=== PATIENT | male | born 2005 | race Two or more races ===

== ENCOUNTER 2024-10-13 20:29 | Emergency (ER) | payer MEDICAID, OTHER ==
[~2024-10-13] VITALS: Ht 170.2 cm; Wt 89.8 kg
[2024-10-13 21:00] VITALS: BP 139/77; PULSE 74; RESP 16; TEMP 98.2; O2SAT 99
[2024-10-13] MEDS ORDERED: IBUP-1456 PO (21:41)
--- NOTE | 2024-10-13 21:42 | ED.PDOC ---
Musculoskeletal HPI Comments 18-year-old male presents to ER with complaints of right shoulder pain x1 day. Patient reports that he sustained a 3 ft fall and landed on his right shoulder at 7:30 p.m. prior to arrival to ER onto rocks after jumping a fence and has since been experiencing 6/10 right shoulder pain. Denies head injury/LOC. Denies use of medications for current symptoms. Patient presents to ER ambulatory on arrival, with steady gait, in no distress. Denies neck pain, numbness/tingling, shortness of breath, chest pain or any further symptoms/complaints Chief Complaint: Upper Extremity Time Seen by MD: 20:39 Primary Care Provider: UNKNOWN Reviewed Notes: Nurses Notes, Medications, Allergies Allergies: Coded Allergies: NO KNOWN ALLERGIES (Unverified , 10/13/24) Home Meds Active Scripts Ibuprofen (Ibuprofen) 800 Mg Tab, 1 TAB PO TID PRN, #30 TAB 0 Refills Prov:DEBBIEMARIANGELMARICRUZ 10/13/24 Information Source: Patient Mode of Arrival: Ambulatory Past Medical History PAST MEDICAL HISTORY: Denies Surgical History: Denies all surgeries Family History Family History: Unknown Social History Smoker: Non-Smoker Alcohol: Denies ETOH Use Drugs: Denies Drug Use Lives In: Home Constitutional: denies: chills, diaphoresis, fatigue, fever, malaise, sweats, weakness, others EENTM: denies: blurred vision, double vision, ear bleeding, ear discharge, ear drainage, ear pain, ear ringing, eye pain, eye redness, hearing loss, mouth pain, mouth swelling, nasal discharge, nose bleeding, nose congestion, nose pain, photophobia, tearing, throat pain, throat swelling, voice changes, others Respiratory: denies: cough, hemoptysis, orthopnea, SOB at rest, shortness of breath, SOB with excertion, stridor, wheezing, others Cardiovascular: denies: chest pain, dizzy spells, diaphoresis, Dyspnea on exer tion, edema, irregular heart beat, left arm pain, lightheadedness, palpitations, PND, syncope, others Gastrointestinal: denies: abdomen distended, abdominal pain, blood streaked bowels, constipated, diarrhea, dysphagia, difficulty swallowing, hematemesis, melena, nausea, poor appetite, poor fluid intake, rectal bleeding, rectal pain, vomiting, others Genitourinary: denies: burning, dysuria, flank pain, frequency, hematuria, incontinence, penile discharge, penile sore, pain, testicle pain, testicle swelling, urgency, others Neurological: denies: dizziness, fainting, headache, left sided numbness, left sided weakness, numbness, paresthesia, pre-existing deficit, right sided numbness, right sided weakness, seizure, speech problems, tingling, tremors, weakness, others Musculoskeletal: reports: others ( STATED IN HPI) Integumetry: denies: bruises, change in color, change in hair/nails, dryness, laceration, lesions, lumps, rash, wounds, others Allergic/Immunocompromised: denies: Difficulty Healing, Frequent Infections, Hives, Itching, others Hematologic/Lymphatic: denies: anemia, blood clots, easy bleeding, easy bruising, swollen glands, others Endocrine: denies: excessive hunger, excessive sweating, excessive thirst, excessive urination, flushing, intolerance to cold, intolerance to heat, unexplained weight gain, unexplained weight loss, others Psychiatric: denies: anxiety, bipolar disorder, depression, hopeless, panic disorder, schizophrenia, sleepless, suicidal, others Physical Exam General Appearance: No Apparent Distress, Obese HEENT: PERRL/EOMI, TMs Normal Neck: Full Range of Motion, Non-Tender, Normal Respiratory: Chest Non-Tender, Lungs Clear, No Accessory Muscle Use, No Respiratory Distress, Normal Breath Sounds Cardiovascular: No Murmur, No Gallop, Regular Rate/Rhythm Breast Exam: Deferred Gastrointestinal: Non Tender, No Pulsatile Mass, Soft Genitalia: Deferred Pelvic: Deferred Rectal: Deferred Extremities: Normal capillary refill, Normal range of motion Musculoskeletal : Extremity Location: Shoulder (TTP/minimal abrasions noted to right proximal humerus. No deformity/further skin changes noted. Negative Apley scratch test right shoulder. No other TTP to right upper extremity noted. Pulses intact) Neurologic: Alert, psychological assistant II-XII nml as Tested, No Motor Deficits, Normal Affect, Normal Mood, No Sensory Deficits Cerebellar Function: Normal Reflexes: Normal Skin: Dry, Warm Peripheral Pulses: 2+ carotid (R), 2+ carotid (L), 2+ Radial (R), 2+ Radial (L), 2+ Brachial (R), 2+ Brachial (L) Lymphatic: No Adenopathy Was a procedure done? Was a procedure done?: No Sedation Sedation?: No Differential Diagnosis EXT Differential Diagnosis: Fracture, Dislocation, Neurovascular injury X-Ray, Labs, Meds, VS Vital Signs Date Time Temp Pulse Resp B/P (MAP) Pulse Ox O2 Delivery O2 Flow Rate FiO2 10/13/24 21:00 Room Air 10/13/24 21:00 98.2 74 16 139/77 (97) 99 98.2 10/13/24 21:00 98.2 74 16 139/77 (97) 99 98.2 PATIENT: ADRIA DAWSON ACCT: [id number] UNIT: [id number] : 2005 LOC: ER ROOM / BED: / AGE / SEX: 18 / M ADM STATUS: REG ER SERVICE 05 ORDERING PHYSICIAN: MARICRUZ MYERS PROCEDURE(s): RSHD2 - R SHOULDER 2+ VIEW XRAY REASON: fall ORDER NUMBER(s): [id number], ACCESSION NUMBER(s): [id number] EXAM: XY R SHOULDER 2+ VIEW XRAY HISTORY: fall COMPARISON: None TECHNIQUE: 2 views of the right shoulder were performed. FINDINGS: No acute fracture or dislocation are identified about the right shoulder. No significant degenerative changes or loss of subacromial space. IMPRESSION: Unremarkable radiographs of the right shoulder. ATED BY: KASSANDRA ARREAGA DO DICTATED DATE/TIME: 10/13/242152 SIGNED BY: KASSANDRA ARREAGA DO SIGNED DATE/TIME: 10/13/242152 CC: Right arm sling was applied on arrival to ER for comfort Right shoulder x-ray reviewed Patient neurovascularly intact Advised on rest/no strenuous activity, elevation and alternate ice on/off as needed for pain Advised to follow up with PCP in 1-2 days Patient verbalized understanding and agreeable with current plan of care Advised to return to ER immediately if symptoms worsen Images Reviewed?: Images reviewed and evaluated by me Time of 1ST Reevaluation: 21:24 Reevaluation 1ST: N/A Patient Education/Counseling: Diagnosis, Treatment, Prognosis, Need For Follow Up Family Education/Counseling: No Family Present Departure 1 Departure Time of Disposition: 21:40 Impression: Primary Impression: Contusion of shoulder, right Qualified Codes: S40.011A - Contusion of right shoulder, initial encounter Disposition: HOME / SELF CARE / HOMELESS Condition: Stable e-Prescriptions Ibuprofen (Ibuprofen) 800 Mg Tab 1 TAB PO TID PRN, #30 TAB 0 Refills Prov: MARICRUZ MYERS 10/13/24 Critical Care Note Critical Care Time?: No Stability Stability form required: No Heart Score Heart Score: Heart Score Response (Comments) Value History N/A 0 EKG N/A 0 Age N/A 0 Risk Factors N/A 0 Troponin N/A 0 Total 0 MARICRUZ MYERS Oct 13, 2024 21:42
--- NOTE | 2024-10-13 21:55 | DVH ---
EXAM: XY R SHOULDER 2+ VIEW XRAY HISTORY: fall COMPARISON: None TECHNIQUE: 2 views of the right shoulder were performed. FINDINGS: No acute fracture or dislocation are identified about the right shoulder. No significant degenerativ e changes or loss of subacromial space. IMPRESSION: Unremarkable radiographs of the right shoulder.
== END 2024-10-13 22:17 | disposition home or self-care (01) ==
LOC: ER 20:29
DX: S40.011A Contusion of right shoulder, initial encounter (principal); W19.XXXA Unspecified fall, initial encounter; Y93.89 Activity, other specified; Y92.89 Other specified places as the place of occurrence of the external cause; Y99.8 Other external cause status
CPT/HCPCS: 73030